=== PATIENT | male | born 1960 | race Asian ===

== ENCOUNTER 2021-09-13 08:19 | Day surgery (SDC) | payer MEDICAID, SELFPAY ==
[~2021-09-13] VITALS: Ht 154.9 cm; Wt 49.9 kg
[2021-09-13] MEDS ORDERED: MIDAZOLAM HCL 5 MG/5 ML VIAL ONE (10:01)
[2021-09-13] MEDS ORDERED: fentaNYL CITRATE/PF 100 MCG/2 ML AMP ONE (10:01)
[2021-09-13] MEDS ORDERED: SIMETHICONE 40 MG/0.6 ML ML ONE (10:01)
[2021-09-13 13:26] VITALS: BP_SYST 102
== END 2021-09-13 11:35 | disposition home or self-care (01) ==
LOC: SDS 08:19 → SMU 08:20 → SDS 11:35
PROVIDERS: ATTEND Internal Medicine
DX: Z12.11 Encounter for screening for malignant neoplasm of colon (principal); K64.8 Other hemorrhoids; Z86.010 Personal history of colon polyps; Z79.899 Other long term (current) drug therapy; Z20.822 Contact with and (suspected) exposure to COVID-19
CPT/HCPCS: 45378; 99152; G0378; J2250; J3010